=== PATIENT | female | born 1980 ===

== ENCOUNTER 2024-08-06 07:13 | Inpatient (IN) | payer OTHER ==
[~2024-08-06] VITALS: Ht 162.6 cm; Wt 65.8 kg
[2024-08-06 09:27] LABS: HEMATOCRIT 40.4 % (36.0-45.00); HEMOGLOBIN 13.7 g/dL (12.0-15.00); MEAN CELL VOLUME 85.7 fL (80.00-100.00); MEAN CORPUSCULAR HEMOGLOBIN 29.2 pg (27.00-32.0); PLATELET COUNT 316 K/uL (150-450); RED BLOOD COUNT 4.71 M/uL (4.00-6.00); RED CELL DISTRIBUTION WIDTH 13.7 % (11.5-14.5)
[2024-08-06 09:29] LABS: URINE BILIRRUBIN NEGATIVE (NEGATIVE); URINE BLOOD NEGATIVE; URINE GLUCOSE NEGATIVE (NEGATIVE); URINE KETONE NEGATIVE (NEGATIVE); URINE LEUKOCYTE NEGATIVE; URINE NITRATE NEGATIVE; URINE PROTEIN NEGATIVE (NEGATIVE); URINE UROBILINOGEN 0.2 E.U./dl
[2024-08-06 09:33] LABS: URINE APPEARANCE SL CLOUDY; URINE BACTERIA 778.4 uL (0.0-1933); URINE CAST 0.29 uL (0.0-1.40); URINE COLOR YELLOW; URINE EPITHELIAL CELLS 55.5 uL (0.0-38.8); URINE RBC 2.7 uL (0.0-20.8); URINE WBC 19.2 uL (0.0-23.2)
[2024-08-06] MEDS ORDERED: XYZAL5 MG PO (09:34)
[2024-08-06] MEDS ORDERED: FLONASE SENSIM5.9 ML (09:35)
[2024-08-06] MEDS ORDERED: JUNEL FE 1 MG-1 EACH PO (09:35)
[2024-08-06] MEDS ORDERED: VITAMIN D3125 MC1 PO (09:35)
[2024-08-06 09:36] VITALS: BP 109/71
[2024-08-06 09:38] VITALS: BP 119/85
[2024-08-06 09:41] LABS: INR 0.94; PARTIAL THROMBOPLASTIN TIME 26.8 SECONDS (22.0-34.0); PROTHROMBIN TIME 10.3 SECONDS (9.0-11.5)
[2024-08-06 10:15] LABS: ALBUMIN 3.6 gm/dL (3.4-5.0); BILIRUBIN TOTAL 0.55 mg/dL (0.3-1.2); CREATININE SERUM 0.67 mg/dL (0.55-1.02); GFR 96.06; GLOBULINA 3.3 G/DL (2.4-3.5); POTASSIUM 4.56 mEq/L (3.5-5.1); TOTAL PROTEIN 6.9 gm/dL (6.4-8.2)
[2024-08-06 10:42] LABS: RH POSITIVE
[2024-08-12] MEDS ORDERED: METRONIDAZOLE/SODIUM CHLORIDE 500 MG/100 ML PIGGYBACK IV ONE (11:01)
[2024-08-12] MEDS ORDERED: POVIDONE-IODINE 118 ML BOTT TOP ONE (12:27)
[2024-08-12] MEDS ORDERED: HEMOSTATIC MATRIX WITH THROMBIN KIT TOP ONE (12:27)
[2024-08-12] MEDS ORDERED: SURGIFLO APPLICATOR 1 EACH APPL TOP ONE (12:27)
[2024-08-12] MEDS ORDERED: CEFAZOLIN SODIUM 1,000 MG VIAL IV ONE (13:45)
[2024-08-12] MEDS ORDERED: VISTASEAL DUAL APPICATOR 1 EACH APPL TOP ONE (14:09)
[2024-08-12] MEDS ORDERED: THROMBIN,HU/FIBRINOGEN/CALCIUM 10 ML SYRINGE TOP ONE (14:09)
[2024-08-12] MEDS ORDERED: SUGAMMADEX SODIUM 200 MG/2 ML VIAL IV ONE (14:45)
[2024-08-12] MEDS ORDERED: MORPHINE SULFATE 4 MG/ML CARTRIDGE IV PRN (15:15)
[2024-08-12] MEDS ORDERED: ONDANSETRON HCL 2 MG/ML VIAL IV PRN (15:15)
[2024-08-12] MEDS ORDERED: RINGERS SOLUTION,LACTATED 1,000 ML IV SCH (15:15)
[2024-08-12] MEDS ORDERED: OxyCODONE HCL 5 MG TABLET (ROXICODONE) PO PRN (15:15)
[2024-08-12] MEDS ORDERED: MORPHINE SULFATE 4 MG/ML VIAL IV ONE ×2 (15:40→16:10)
[2024-08-12] MEDS ORDERED: CEFAZOLIN SODIUM 1,000 MG VIAL IV SCH (17:00)
[2024-08-12] MEDS ORDERED: METOCLOPRAMIDE HCL 5 MG/ML VIAL IV SCH (17:00)
[2024-08-12] MEDS ORDERED: GABAPENTIN 300 MG CAPSULE PO SCH (17:00)
[2024-08-12] MEDS ORDERED: SIMETHICONE 125 MG CAPSULE PO SCH (17:00)
[2024-08-12] MEDS ORDERED: METOCLOPRAMIDE HCL 5 MG/ML VIAL ONE (17:18)
[2024-08-12] MEDS ORDERED: KETOROLAC TROMETHAMINE 30 MG VIAL ONE (17:19)
[2024-08-12] MEDS ORDERED: CEFAZOLIN SODIUM 1,000 MG VIAL ONE (17:19)
[2024-08-12] MEDS ORDERED: KETOROLAC TROMETHAMINE 30 MG VIAL IM SCH (18:00)
[2024-08-12 18:49] LABS: HEMATOCRIT 37.5 % (36.0-45.00); HEMOGLOBIN 12.7 g/dL (12.0-15.00); MEAN CELL VOLUME 85.9 fL (80.00-100.00); MEAN CORPUSCULAR HEMOGLOBIN 29.1 pg (27.00-32.0); MEAN CORPUSCULAR HGB CONC 33.9 g/dl (32.0-36.0); PLATELET COUNT 277 K/uL (150-450); RED BLOOD COUNT 4.36 M/uL (4.00-6.00); RED CELL DISTRIBUTION WIDTH 13.3 % (11.5-14.5)
[2024-08-12 19:15] LABS: CALCIUM 8.2 mg/dL (8.5-10.1); CREATININE SERUM 0.64 mg/dL (0.55-1.02); GFR 101.28; PHOSPHOROUS 3.2 mg/dL (2.5-4.9); POTASSIUM 4.04 mEq/L (3.5-5.1)
[2024-08-12] MEDS ORDERED: FAMOTIDINE/PF 20 MG/2 ML VIAL ONE (20:58)
[2024-08-12] MEDS ORDERED: SIMETHICONE 125 MG CAPSULE PO ONE (20:58)
[2024-08-12] MEDS ORDERED: FAMOTIDINE/PF 20 MG/2 ML VIAL IV PUSH SCH (21:00)
[2024-08-12] MEDS ORDERED: DOCUSATE SODIUM 100MG CAP PO SCH ×2 (21:00→21:45)
[2024-08-12 21:36] VITALS: BP 109/71; O2SAT 99
[2024-08-13 00:17] VITALS: BP 94/60; O2SAT 100
[2024-08-13 06:54] LABS: MEAN CELL VOLUME 86.9 fL (80.00-100.00); MEAN CORPUSCULAR HEMOGLOBIN 29.7 pg (27.00-32.0); MEAN CORPUSCULAR HGB CONC 34.2 g/dl (32.0-36.0); PLATELET COUNT 239 K/uL (150-450); RED BLOOD COUNT 4.03 M/uL (4.00-6.00); RED CELL DISTRIBUTION WIDTH 13.4 % (11.5-14.5)
[2024-08-13 07:37] LABS: ALBUMIN 2.7 gm/dL (3.4-5.0); CALCIUM 8.1 mg/dL (8.5-10.1); CREATININE SERUM 0.58 mg/dL (0.55-1.02); GFR 113.46; PHOSPHOROUS 3.2 mg/dL (2.5-4.9); POTASSIUM 4.14 mEq/L (3.5-5.1)
[2024-08-13 08:00] VITALS: BP 94/65
[2024-08-13] MEDS ORDERED: ENOXAPARIN SODIUM 40 MG/0.4 ML SYRINGE SUBCUTANEO SCH (09:00)
== END 2024-08-13 14:36 | disposition home or self-care (01) | DRG 743 ==
LOC: SURH 08-12 07:45 → O/R 08-12 09:30 → OB/GYN 08-12 16:10 → SURH 08-12 21:45 → OB/GYN 08-13 14:36
PROVIDERS: ADMIT Obstetrics & Gynecology Gynecologic Oncology; ATTEND Obstetrics & Gynecology Gynecologic Oncology
PROC: 0UT64ZZ Resection of Left Fallopian Tube, Percutaneous Endoscopic Approach (ICD-10-PCS; 2024-08-12)
PROC: 0UT14ZZ Resection of Left Ovary, Percutaneous Endoscopic Approach (ICD-10-PCS; 2024-08-12)
PROC: 0TN74ZZ Release Left Ureter, Percutaneous Endoscopic Approach (ICD-10-PCS; 2024-08-12)
PROC: 07BC4ZZ Excision of Pelvis Lymphatic, Percutaneous Endoscopic Approach (ICD-10-PCS; 2024-08-12)
PROC: 0WBH4ZZ Excision of Retroperitoneum, Percutaneous Endoscopic Approach (ICD-10-PCS; 2024-08-12)
PROC: 0WBF4ZZ Excision of Abdominal Wall, Percutaneous Endoscopic Approach (ICD-10-PCS; 2024-08-12)
PROC: 8E0W4CZ Robotic Assisted Procedure of Trunk Region, Percutaneous Endoscopic Approach (ICD-10-PCS; 2024-08-12)
PROC: 0UT94ZZ Resection of Uterus, Percutaneous Endoscopic Approach (ICD-10-PCS; principal; 2024-08-12 21:45)
DX: D25.1 Intramural leiomyoma of uterus (principal); N92.0 Excessive and frequent menstruation with regular cycle; N80.03 Adenomyosis of the uterus; N80.5 Endometriosis of intestine; N80.351 Endometriosis of the right pelvic sidewall, unspecified depth; N80.30 Endometriosis of pelvic peritoneum, unspecified; N80.42 Endometriosis of rectovaginal septum with involvement of vagina; N80.102 Endometriosis of left ovary, unspecified depth; N80.00 Endometriosis of the uterus, unspecified; N80.329 Endometriosis of the posterior cul-de-sac, unspecified depth
CPT/HCPCS: 58548; 58661; 50715; 58662; S2900